=== PATIENT | female | born 1985 | race Caucasian/White ===

== ENCOUNTER 2024-10-31 15:56 | Emergency (ER) | payer OTHER, BC | END 2024-10-31 18:28 | disposition home or self-care (01) | LOC: ED 15:56 | DX: S86.911A Strain of unspecified muscle(s) and tendon(s) at lower leg level, right leg, initial encounter (principal); W00.0XXA Fall on same level due to ice and snow, initial encounter; Y93.89 Activity, other specified; Y92.009 Unspecified place in unspecified non-institutional (private) residence as the place of occurrence of the external cause; Y99.8 Other external cause status ==

== ENCOUNTER 2025-04-11 13:45 | Emergency (ER) | payer BC, OTHER ==
[~2025-04-11] VITALS: Ht 157.4 cm; Wt 66.7 kg
[2025-04-11] MEDS ORDERED: SODIUM CHLORIDE 0.9% 100 ML BAG IV ONE (16:10)
[2025-04-11] MEDS ORDERED: IOHEXOL 350 MG/ML 100 ML VIAL IV ONE ×2 (16:10→16:31)
[2025-04-11 16:21] LABS: BASO # 0.0 10*3/uL (0.0-0.1); BASO % 0.4 % (0.0-1.0); EOS # 0.2 10*3/uL (0.0-0.4); EOS % 3.0 % (1.0-4.0); MEAN CELL VOLUME 92.9 fl (81.0-99.0); MEAN CORPUSCULAR HGB 30.4 pg (27.0-31.0); MEAN PLATELET VOLUME 9.5 fl (9.6-12.3); MONO # 0.4 10*3/uL (0.1-1.0); MONO % 4.9 % (3.0-9.0); NEUT # 5.5 10*3/uL (2.3-7.9); NEUT % 67.9 % (47.0-73.0); NUCLEATED RED BLOOD CELL 0.0 % (0.0-0.0); NUCLEATED RED BLOOD CELL 0.0 10*3/uL (0.0-0.0); PLATELET COUNT AUTOMATED 300 10*3/uL (130-400); RED CELL DISTRI WIDTH 13.5 % (0-14.5)
[2025-04-11] MEDS ORDERED: SODIUM CHLORIDE 0.9% 100 ML IV ONE (16:32)
[2025-04-11 16:33] LABS: ACT PARTIAL THROMBO TIME 26.2 SECONDS (20.0-32.1)
[2025-04-11 16:55] LABS: BUN 9 mg/dl (9-23); SGPT/ALT 14 U/L (5-49)
[2025-04-11 17:03] LABS: ETHYL ALCOHOL < 3.0 mg/dl (<3)
[2025-04-11 17:45] LABS: BILIRUBIN Negative (Negative); BLOOD Negative (Negative); CLARITY Clear (Clear); COLOR Yellow (Yellow); KETONE Negative (Negative); LEUKO ESTERASE 2+ (Negative); NITRITE Negative (Negative); PH 6.5 (4.5-8.0); SPECIFIC GRAVITY 1.010 (1.001-1.030); UROBILINOGEN 0.2 E.U./dl (0.0-1.0)
[2025-04-11 17:52] LABS: URINE AMPHETAMINES Negative (1000ng/ml); URINE BARBITURATES Negative (200ng/ml); URINE BENZODIAZEPINES Negative (200ng/ml); URINE CANNABINOIDS (THC) Negative (50ng/ml); URINE COCAINE Negative (300ng/ml); URINE METHADONE Negative (300ng/ml); URINE OPIATES Negative (300ng/ml); URINE PHENCYCLIDINE Negative (25ng/ml)
[2025-04-11 17:58] LABS: BACTERIA 1+
== END 2025-04-11 20:23 | disposition short-term general hospital (02) ==
LOC: ED 13:45
PROVIDERS: Internal Medicine
DX: H54.7 Unspecified visual loss (principal)

== ENCOUNTER 2025-04-13 07:27 | Emergency (ER) | payer BC, OTHER ==
[~2025-04-13] VITALS: Ht 157.4 cm; Wt 66.7 kg
[2025-04-14] MEDS ORDERED: IBU800 M2 PO (10:32)
== END 2025-04-13 09:08 | disposition home or self-care (01) ==
LOC: ED 07:27
DX: H46.9 Unspecified optic neuritis (principal)

== ENCOUNTER 2025-04-14 09:42 | Emergency (ER) | payer BC, OTHER ==
[~2025-04-14] VITALS: Ht 157.4 cm; Wt 66.7 kg
[2025-04-14 10:04] LABS: BASO # 0.0 10*3/uL (0.0-0.1); BASO % 0.1 % (0.0-1.0); EOS # 0.1 10*3/uL (0.0-0.4); EOS % 0.4 % (1.0-4.0); MEAN CELL VOLUME 94.4 fl (81.0-99.0); MEAN CORPUSCULAR HGB 31.2 pg (27.0-31.0); MEAN PLATELET VOLUME 9.6 fl (9.6-12.3); MONO # 1.2 10*3/uL (0.1-1.0); MONO % 8.3 % (3.0-9.0); NEUT # 9.9 10*3/uL (2.3-7.9); NEUT % 70.2 % (47.0-73.0); NUCLEATED RED BLOOD CELL 0.0 % (0.0-0.0); NUCLEATED RED BLOOD CELL 0.0 10*3/uL (0.0-0.0); PLATELET COUNT AUTOMATED 261 10*3/uL (130-400); RED CELL DISTRI WIDTH 13.9 % (0-14.5)
[2025-04-14 10:26] LABS: BUN 14 mg/dl (9-23)
[2025-04-14] MEDS ORDERED: IBU800 M2 PO (10:32)
== END 2025-04-14 11:14 | disposition home or self-care (01) ==
LOC: ED 09:42
PROVIDERS: Internal Medicine
DX: H46.8 Other optic neuritis (principal); G35 Multiple sclerosis

== ENCOUNTER 2025-08-26 14:11 | Emergency (ER) | payer BC, OTHER ==
[~2025-08-26] VITALS: Ht 157.4 cm; Wt 62.1 kg
[~2025-08-26 14:11] MED LIST: IBU800 M2 PO
== END 2025-08-26 18:55 | disposition short-term general hospital (02) ==
LOC: ED 14:11
DX: R20.0 Anesthesia of skin (principal); R20.2 Paresthesia of skin; R32 Unspecified urinary incontinence